=== PATIENT | male | born 1965 | race Caucasian/White ===

== ENCOUNTER 2022-08-13 12:53 | Emergency (ER) | payer OTHER ==
[~2022-08-13] VITALS: Ht 175.3 cm; Wt 100.0 kg
[2022-08-13 13:00] VITALS: BP 141/85
--- NOTE | 2022-08-13 13:15 | NUR ---
FIRST CONTACT. PT AO4. NO RESP ISSUES. NO ISSUES SWALLOWING. PT CLAIMS NO SOB OR CP.
== END 2022-08-13 13:40 | disposition home or self-care (01) ==
LOC: ER 12:53
DX: J02.9 Acute pharyngitis, unspecified (principal); R05.9 Cough, unspecified; R09.89 Other specified symptoms and signs involving the circulatory and respiratory systems; F17.200 Nicotine dependence, unspecified, uncomplicated
CPT/HCPCS: 99281; A4353

== ENCOUNTER 2022-09-22 11:41 | Emergency (ER) | payer OTHER ==
[~2022-09-22] VITALS: Ht 175.3 cm; Wt 97.7 kg
[2022-09-22] MEDS ORDERED: PRED50TA PO (14:52)
[2022-09-22] MEDS ORDERED: HYDR-3965 PO (14:52)
[2022-09-22] MEDS ORDERED: LEVO-65 PO (14:52)
[2022-09-22 15:16] VITALS: BP 132/86
== END 2022-09-22 15:17 | disposition home or self-care (01) ==
LOC: ER 11:42
DX: R05.9 Cough, unspecified (principal); R09.81 Nasal congestion; R50.9 Fever, unspecified; Z88.5 Allergy status to narcotic agent; Z79.899 Other long term (current) drug therapy
CPT/HCPCS: 71045; 99283

== ENCOUNTER 2022-10-05 09:11 | Emergency (ER) | payer OTHER ==
[~2022-10-05] VITALS: Ht 175.3 cm; Wt 97.7 kg
[~2022-10-05 09:11] MED LIST: HYDR-3965 PO; PRED50TA PO
[2022-10-05 09:52] VITALS: BP 132/75
== END 2022-10-05 11:04 | disposition home or self-care (01) ==
LOC: ER 09:12
DX: U07.1 COVID-19 (principal); Z88.5 Allergy status to narcotic agent; Z79.899 Other long term (current) drug therapy
CPT/HCPCS: 99281